=== PATIENT | female | born 1975 | race Caucasian/White ===

== ENCOUNTER → 2019-04-18 | Outpatient (CLI) | payer OTHER ==
--- NOTE | 2019-04-19 14:47 | WOMENS IMAGING REPORT ---
EXAM DESCRIPTION: BILAT SCREENING MAMMO W/CAD COMPLETED DATE/TIME: 04/18/2019 4:05 pm REASON FOR STUDY: Z12.31 ENCOUNTER FOR SCREENING MAMMOGRAM FOR MALIGNANT NEOPLASM OF BREAST Z12.31 ENCNTR SCREEN MAMMOGRAM FOR MALIGNANT NEOPLASM OF [place] COMPARISON: None. EXAM PARAMETERS: Standard craniocaudal and mediolateral oblique views of each breast recorded using digital acquisition. Additional "push-back" craniocaudal and mediolateral oblique images acquired. Read with the assistance of CAD. .[facility] - Direct Support Professional Caregiver Version 9.2 LIMITATIONS: None. FINDINGS: IMPLANTS: Bilateral subpectoral implants. Findings present which are benign by mammographic criteria. No suspicious masses, calcifications or architectural distortion. Benign mammographic findings may include one or more of the following: Smooth masses, popcorn/rim/co arse calcifications, asymmetries, post-procedure changes, and lesions with long-standing stability. IMPRESSION: BENIGN MAMMOGRAPHIC FINDINGS. BIRADS 2 BREAST DENSITY: c. The breasts are heterogeneously dense, which may obscure small masses. BIRAD: ASSESSMENT: 2 BENIGN FINDING(S) RECOMMENDATION: ROUTINE SCREENING COMMENT: The patient has been notified of the results by letter per MQSA requirements. Additional no tification policies are in place for contacting patient with suspicious or incomplete findings. Quality ID #[id number]: The [employer] recommends an annual screening mammogram for women aged 40 years or over. This facility utilizes a reminder system to ensure that all patients receive reminder letters, and/or direct phone calls for appointments. This includes reminders for routine scr eening mammograms, diagnostic mammograms, or other Breast Imaging Interventions when appropriate. Th is patient will be placed in the appropriate reminder system. TECHNICAL DOCUMENTATION: FINDING NUMBER: (1) ASSESSMENT: (1) JOB ID: [id number] 2010 [employer]- All Rights Reserved Reading location - IP/workstation name: [email or web address]
== END ==
LOC: WI 15:37
PROVIDERS: ATTEND Family Medicine
DX: Z12.31 Encounter for screening mammogram for malignant neoplasm of breast (principal); Z98.82 Breast implant status
CPT/HCPCS: 77067

== ENCOUNTER 2019-08-19 10:47 | Emergency (ER) | payer OTHER ==
[2019-08-19] MEDS ORDERED: NORMAL SALINE 1000 ML 1,000 ML IV ONE (13:03)
[2019-08-19] MEDS ORDERED: ACETAMINOPHEN 325 MG TABLET PO ONE (13:04)
[2019-08-19] MEDS ORDERED: LOPERAMIDE HCL 2 MG CAPSULE PO ONE (13:04)
[2019-08-19 13:14] LABS: ABSOLUTE LYMPHOCYTES (AUTO) 0.5 10^3/uL (0.5-4.7); ABSOLUTE MONOCYTES (AUTO) 0.5 10^3/uL (0.1-1.4); BASOPHILS % (AUTO) 0.3 % (0-2); EOSINOPHILS % (AUTO) 0.1 % (0-6); HEMATOCRIT 33.7 % (36.0-47.0); HEMOGLOBIN 12.2 g/dL (12.0-15.5); MEAN CORPUSCULAR HEMOGLOBIN 31.4 pg (27.0-33.4); MEAN CORPUSCULAR HGB CONC 36.2 g/dL (32.0-36.0); MEAN CORPUSCULAR VOLUME 87 fl (80-97); MONOCYTES % (AUTO) 9.6 % (3-13); PLATELET COUNT 130 10^3/uL (150-450); RED BLOOD COUNT 3.89 10^6/uL (3.72-5.28); RED CELL DISTRIBUTION WIDTH 12.8 % (11.5-14.0); TOTAL CELLS COUNTED % (AUTO) 100 %; WHITE BLOOD COUNT 5.1 10^3/uL (4.0-10.5)
[2019-08-19 13:17] LABS: INTERNATIONAL RATION (INR) 1.13; PROTHROMBIN TIME 14.6 SEC (11.4-15.4)
[2019-08-19 13:18] LABS: PARTIAL THROMBOPLASTIN TIME 30.3 SEC (23.5-35.8)
[2019-08-19 13:29] LABS: ALBUMIN 3.8 g/dL (3.5-5.0); ALKALINE PHOSPHATASE 45 U/L (38-126); ANION GAP 6 (5-19); ASPARTATE AMINO TRANSFERASE 28 U/L (14-36); BILIRUBIN,TOTAL 0.7 mg/dL (0.2-1.3); BLOOD UREA NITROGEN 5 mg/dL (7-20); CALCIUM 8.6 mg/dL (8.4-10.2); CARBON DIOXIDE 25 mmol/L (22-30); CHLORIDE 103 mmol/L (98-107); GLUCOSE 103 mg/dL (75-110); POTASSIUM 3.5 mmol/L (3.6-5.0); TOTAL PROTEIN 6.3 g/dL (6.3-8.2)
--- NOTE | 2019-08-19 13:37 | ER Document Report ---
ED Flu Like - General Chief Complaint: Flu Symptoms Stated Complaint: FEVER,CHILLS,DIARRHEA,BODY ACHES Time Seen by Provider: 08/19/19 12:20 [facility] - Follow up as needed Mode of Arrival: Ambulatory Information source: Patient Notes: Patient presents complaining of diarrhea for the past 3 days. Patient states she has had 4 episodes today and did notice some blood in her stool yesterday. Patient reports fever of 1027 today with body aches for the past 2 days. Patient states she has had headache to the frontal area and abdominal cramping with her diarrhea for the past 2 days as well. Patient went to the [facility] for screening for the coronavirus and was found to have a low blood pressure at that time. They advised her to come here for further evaluation. Patient did have a negative strep and negative influenza test there and has a COVID test that is currently pending. Patient denies any cough. Patient denies any nausea or vomiting. TRAVEL OUTSIDE OF THE [place] IN LAST 30 DAYS: No - Related Data Allergies/Adverse Reactions: bee venom protein (honey bee) Allergy (Verified 08/19/19 12:46) dill oil Allergy (Verified 08/19/19 12:46) shellfish derived Allergy (Verified 08/19/19 12:46) Past Medical History - General Information source: Patient - Social History Smoking Status: Never Smoker Frequency of alcohol use: None Drug Abuse: None Occupation: none Lives with: Family Family History: Reviewed & Not Pertinent Patient has homicidal ideation: No - Medical History Medical History: Negative Past Surgical History: Reports: Hx Breast Surgery - augmentation Review of Systems - Review of Systems Constitutional: Chills, Fever, Malaise EENT: No symptoms reported Cardiovascular: No symptoms reported. denies: Chest pain Respiratory: No symptoms reported. denies: Cough Gastrointestinal: Abdominal pain, Diarrhea. denies: Nausea, Vomiting Genitourinary: No symptoms reported. denies: Dysuria Female Genitourinary: No symptoms reported Musculoskeletal: Muscle pain Skin: No symptoms reported Hematologic/Lymphatic: No symptoms reported Neurological/Psychological: Headaches. denies: Weakness Physical Exam - Vital signs Vitals: Temp 98.9 F 08/19/19 11:48 - General General appearance: Appears well, Alert In distress: None - HEENT Head: Normocephalic, Atraumatic Eyes: Normal Conjunctiva: Normal Nasal: Normal Mouth/Lips: Normal Mucous membranes: Normal Pharynx: Normal. No: Erythema, Peritonsillar abscess, Tonsillar hypertrophy Neck: Normal, Supple. No: Lymphadenopathy, Meningismus - Respiratory Respiratory status: No respiratory distress Chest status: Nontender Breath sounds: Normal. No: Rales, Rhonchi, Stridor, Wheezing Chest palpation: Normal - Cardiovascular Rhythm: Regular Heart sounds: S1 appreciated, S2 appreciated Murmur: No - Abdominal Inspection: Normal Distension: No distension Bowel sounds: Normal Tenderness: Tender - Generalized abdominal tenderness. No: McBurney's point, Mu rphy's sign, Guarding Organomegaly: No organomegaly - Back Back: Normal, Nontender. No: CVA tenderness - Extremities General upper extremity: Normal inspection, Normal strength General lower extremity: Normal inspection, Normal strength - Neurological Neuro grossly intact: Yes Cognition: Normal Yessenia Coma Scale Eye Opening: Spontaneous [place] Coma Scale Verbal: Oriented [place] Coma Scale Motor: Obeys Commands Talmage Coma Scale Total: 15 - Psychological Associated symptoms: Normal affect, Normal mood - Skin Skin Temperature: Warm Skin Moisture: Dry Skin Color: Normal Course - Re-evaluation Re-evalutation: 08/19/19 15:16 Patient states that she has had no additional diarrhea bowel movement while her e. Patient complains of continued mild cramping to her abdomen. No nausea or vomiting at this time. 08/19/19 17:06 Abdomen soft, patient does report cramping with diarrhea bowel movement. Patient has had 2 stools while here. Patient without any acute findings on her diagnostic evaluation here today. Patient did have a negative rapid strep and influenza test at the [facility] and did have a COVID test that is still pending at this time. Discussed symptomatic treatment at this time. Discussed worsening symptoms of patient should return immediately for. Patient verbalized understanding and is agreeable plan of care at this time. Low clinical suspicion for any acute life-threatening etiology based on exam and history including acute cholecystitis, SBO, appendicitis, nephrolithiasis, or pylo nephritis. CMP without evidence of acute hepatitis or significant dehydration. Will plan for discharge at this time with return precautions and followup recommendations. 08/19/19 17:10 The patient was evaluated during the global Covid 19 pandemic, and that diagnosis was suspected/considered upon their initial presentation. Their evaluation, treatment and testing was consistent with current guidelines for patients who present with complaints or symptoms that may be related to Covid 19. - Vital Signs Vital signs: Temp Pulse Resp BP Pulse Ox 97.6 F 62 16 98/64 L 100 08/19/19 19:10 08/19/19 19:10 08/19/19 19:10 08/19/19 19:10 08/19/19 19:10 - Laboratory Result Diagrams: 08/19/19 12:30 08/19/19 12:30 Laboratory results interpreted by me: 08/19/19 08/19/19 08/19/19 11:45 12:30 12:30 Hct 33.7 L MCHC 36.2 H Plt Count 130 L Lymph % (Auto) 10.0 L Seg Neutrophils % 80.0 H Sodium 133.8 L Potassium 3.5 L BUN 5 L Urine Ketones TRACE H Urine Blood SMALL H 08/19/19 17:08 Labs- All tests 24 hr 08/19/19 08/19/19 08/19/19 11:45 12:30 12:30 WBC 5.1 RBC 3.89 Hgb 12.2 Hct 33.7 L MCV 87 MCH 31.4 MCHC 36.2 H RDW 12.8 Plt Count 130 L Lymph % (Auto) 10.0 L [place] % (Auto) 9.6 Eos % (Auto) 0.1 Baso % (Auto) 0.3 Absolute Neuts (auto) 4.0 Absolute Lymphs (auto) 0.5 Absolute Monos (auto) 0.5 Absolute Eos (auto) 0.0 Absolute Basos (auto) 0.0 Seg Neutrophils % 80.0 H PT INR APTT Sodium 133.8 L Potassium 3.5 L Chloride 103 Carbon Dioxide 25 Anion Gap 6 BUN 5 L Creatinine 0.54 Est GFR ( Amer) > 60 Est GFR (MDRD) Non-Af > 60 Glucose 103 Calcium 8.6 Total Bilirubin 0.7 Direct Bilirubin 0.0 Neonat Total Bilirubin Not Reportable Neonat Direct Bilirubin Not Reportable Neonat Indirect Bili Not Reportable AST 28 ALT 14 Alkaline Phosphatase 45 Total Protein 6.3 Albumin 3.8 Lipase 61.3 Serum HCG, Qual Urine Color STRAW Urine Appearance CLEAR Urine pH 7.0 Ur Specific [place] 1.003 Urine Protein NEGATIVE Urine Glucose (UA) NEGATIVE Urine Ketones TRACE H Urine Blood SMALL H Urine Nitrite NEGATIVE Urine Bilirubin NEGATIVE Urine Urobilinogen NEGATIVE Ur Leukocyte Esterase NEGATIVE Urine WBC (Auto) 0 Urine RBC (Auto) 0 Urine Mucus (Auto) RARE Urine Ascorbic Acid NEGATIVE 08/19/19 08/19/19 12:30 12:30 WBC RBC Hgb Hct MCV MCH MCHC RDW Plt Count Lymph % (Auto) [place] % (Auto) Eos % (Auto) Baso % (Auto) Absolute Neuts (auto) Absolute Lymphs (auto) Absolute Monos (auto) Absolute Eos (auto) Absolute Basos (auto) Seg Neutrophils % PT 14.6 INR 1.13 APTT 30.3 Sodium Potassium Chloride Carbon Dioxide Anion Gap BUN Creatinine Est GFR ( Amer) Est GFR (MDRD) Non-Af Glucose Calcium Total Bilirubin Direct Bilirubin Neonat Total Bilirubin Neonat Direct Bilirubin Neonat Indirect Bili AST ALT Alkaline Phosphatase Total Protein Albumin Lipase Serum HCG, Qual NEGATIVE Urine Color Urine Appearance Urine pH Ur Specific [place] Urine Protein Urine Glucose (UA) Urine Ketones Urine Blood Urine Nitrite Urine Bilirubin Urine Urobilinogen Ur Leukocyte Esterase Urine WBC (Auto) Urine RBC (Auto) Urine Mucus (Auto) Urine Ascorbic Acid Discharge - Discharge Clinical Impression: Abdominal cramping, Dehydration Diarrhea Qualifiers: Diarrhea type: unspecified type Qualified Code(s): R19.7 - Diarrhea, unspecified Condition: Stable Disposition: HOME, SELF-CARE Instructions: Antispasmodics ([facility]) Additional Instructions: Return immediately for any new or worsening symptoms Followup with your primary care provider, call tomorrow to make a followup appointment DIARRHEA, NON-SPECIFIC: Diarrhea means frequent, watery stools. There are many causes. Any problem that keeps the intestinal tract from absorbing water from the stool can lead to diarrhea. A sudden new diarrhea problem is usually caused by a virus, food sensitivity, toxic bacteria, or drugs. In this case, we expect the problem to go away soon. Testing is done only if you seem seriously ill from the diarrhea. If you have chronic diarrhea, or diarrhea that keeps coming back, we need to find out why. Chronic diarrhea can be due to inflammation of the bowels such as Crohn's disease or ulcerative colitis, food sensitivity such as intolerance to lactose or wheat protein, irritable bowel syndrome, and other problems. If your diarrhea is a significant problem but it's not clear why you have it, we'll refer you to a specialist for further testing. During an episode of diarrhea, drink small amounts (two to six ounces) of clear liquids (soft drinks, sport drinks, herb teas, broth, etc). Take fluids frequently to prevent dehydration. It's usually not a problem to take mild anti- diarrhea medication such as Kaopectate or Pepto-Bismol. As the diarrhea eases, advance to small amounts of bland food (mashed potato, toast) for 24 hours. Call the physician if blood appears in your vomit or stool, if vomiting lasts longer than 24 hours, if the abdominal pain worsens or becomes localized to one area, if you develop high fever, or if you become lightheaded and weak. VIRAL SYNDROME: The physician has diagnosed a viral infection. Viruses not only cause "col ds," but can cause many different symptoms including generalized aching, fever, headache, cough, diarrhea, nausea, vomiting, and fatigue. The treatment, for the most part, is simply relief of symptoms. This means that antibiotics are usually not given. Rest, fluids, pain medications and, occasionally, medication for the specific symptoms that are most bothersome will be prescribed. Use good handwashing to avoid passing the virus to others. Shared toys should be cleaned with disinfectant. Clean the toilets, sinks, and counter surfaces in bathrooms. Launder clothing in hot water. Contact the physician if you develop any new or unusual symptoms such as severe headache, stiff neck, high fever, chest pain, productive cough, or shortness of breath. You should be rechecked if you don't see marked improvement within seven to 10 days. INTRAVENOUS (I V) FLUIDS: As part of your care today, you received intravenous (IV) fluids. IV fluids are administered to patients who are dehydrated or to those who have certain chemical (electrolyte) abnormalities that need correcting. FOLLOW-UP CARE: If you have been referred to a physician for follow-up care, call the physicians office for an appointment as you were instructed or within the next two days. If you experience worsening or a significant change in your symptoms, notify the physician immediately or return to the Emergency Department at any time for re-evaluation. Prescriptions: Dicyclomine HCl [Bentyl 20 mg Tablet] 20 mg PO QID PRN #12 tablet PRN Reason: Referrals: [facility] [Provider Group] - Follow up as needed
[2019-08-19 13:58] LABS: APPEARANCE,URINE CLEAR; BILIRUBIN,URINE NEGATIVE (NEGATIVE); COLOR,URINE STRAW; GLUCOSE, URINE NEGATIVE (NEGATIVE); KETONES,URINE TRACE mg/dL (NEGATIVE); LEUKOCYTE ESTERASE,URINE NEGATIVE (NEGATIVE); NITRITE,URINE NEGATIVE (NEGATIVE); PROTEIN,URINE NEGATIVE (NEGATIVE); URINE SPECIFIC GRAVITY 1.003; UROBILINOGEN,URINE NEGATIVE mg/dL (<2.0)
[2019-08-19] MEDS ORDERED: DICYCLOMINE HCL 20 MG TABLET PO ONE (15:15)
[2019-08-19] MEDS ORDERED: RINGERS SOLUTION,LACTATED 1,000 ML IV ONE (15:15)
[2019-08-19 19:10] VITALS: BP 98/64
--- NOTE | 2019-08-19 19:16 | EKG REPORT ---
SEVERITY:- NORMAL ECG - SINUS RHYTHM : Confirmed by: Kimberly Wong 19-Aug-2019 19:14:34
[2019-08-19 20:13] LABS: C DIFFICILE GDH NEGATIVE (NEGATIVE)
== END 2019-08-19 18:35 | disposition home or self-care (01) ==
LOC: ER 10:47
DX: E86.0 Dehydration (principal); R10.84 Generalized abdominal pain; R19.7 Diarrhea, unspecified; M79.10 Myalgia, unspecified site; R50.9 Fever, unspecified
CPT/HCPCS: 93005; 99284; 96360; 96361; 36415; 87040; 87045; 87205; 83690; 84703; 85025; 85610; 85730; 87077; 80053; 81001; 87324; 87449; 93010; J3490; J7030; J7120

== ENCOUNTER → 2019-08-19 | Outpatient (CLI) | payer OTHER ==
[2019-08-19 12:51] LABS: A TYPE INFLUENZA AG NEGATIVE (NEGATIVE); B INFLUENZA AG NEGATIVE (NEGATIVE)
[2019-08-19 13:34] VITALS: BP 83/50
--- NOTE | 2019-08-19 13:34 | ER RDC ASSESSMENT REPORT ---
Intake - In the Last 14 days Have you traveled outside [place]?: No Have you been in close contact with someone CONFIRMED: No Worked in Healthcare?: No - Symptoms Subjective Fever([place] feverish): Yes Chills: Yes Muscule Aches: Yes Runny Nose: No Sore Throat: No Cough (New or worsening chronic cough): No Shortness of breath: No Nausea or Vomiting: No Headache: No Abdominal Pain: Yes Diarrhea(3 or more loose stools in last 24 hours): Yes - Do you have any of the following Chronic lung disease: Asthma or emphysema or COPD: No Cystic Fibrosis: No Diabetes: No High Blood Pressure: No Cardiovascular Disease: No Chronic Kidney Disease: No Chronic Liver Disease: No Chronic blood disorder like Sickle Cell Disease: No Weak immune system due to disease or medication: No Neurologic condition that limits movement: No Developmental delay - Moderate to Severe: No Recent (within past 2 weeks) or current : No Morbid Obesity (>100 pounds over ideal weight): No - Objective Vital Signs: 5'4", 120 lb Temperature: 98.8 F Pulse Rate: 97 Respiratory Rate: 20 Blood Pressure: 83/50 - recheck 86/54 O2 Sat by Pulse Oximetry: 97 Objective: Given above, testing performed: flu, strep, covid Disposition: Home; Selfcare General - General Chief Complaint: Diarrhea Time Seen by Provider: 08/19/19 10:30 Mode of Arrival: Ambulatory Information source: Patient - HPI Notes: 44-year-old female presents to [facility] clinic for COVID-19 testing. Patient has no significant medical history. Patient states onset of symptoms 08/15/2019. She is reporting moderate diarrhea, abdominal pain, headache, chills, muscle aches, and has felt feverish. She is currently denying any sore throat, cough, shortness of breath, nausea. Patient states she has been taking Tylenol with little relief of symptoms. - Related Data Allergies/Adverse Reactions: bee venom protein (honey bee) Allergy (Verified 08/19/19 12:46) dill oil Allergy (Verified 08/19/19 12:46) shellfish derived Allergy (Verified 08/19/19 12:46) Past Medical History - General Information source: Patient - Social History Smoking Status: Former Smoker - Past Medical History Cardiac Medical History: Reports: None Pulmonary Medical History: Reports: None EENT Medical History: Reports: None Neurological Medical History: Reports: None Endocrine Medical History: Reports: None Renal/ Medical History: Reports: None Malignancy Medical History: Reports: None GI Medical History: Reports: None Musculoskeletal Medical History: Reports None Skin Medical History: Reports None Psychiatric Medical History: Reports: None Traumatic Medical History: Reports: None Infectious Medical History: Reports: None Surgical Hx: Negative Past Surgical History: Reports: None Physical Exam - General General appearance: Lethargic In distress: None Notes: PHYSICAL EXAMINATION: GENERAL: ill-appearing, no acute distress but lethargic. HEAD: Atraumatic, normocephalic. EYES: sclera anicteric, conjunctiva are normal. ENT: nares patent. Moist, pale mucous membranes. NECK: Normal range of motion, supple without lymphadenopathy LUNGS: CTAB and equal. No wheezes rales or rhonchi. HEART: Regular rate and rhythm without murmurs ABDOMEN: Soft, nontender, normal bowel sounds, no guarding. EXTREMITIES: Normal range of motion, no pitting edema. No cyanosis. NEUROLOGICAL: Cranial nerves grossly intact. Normal speech. PSYCH: Normal mood, normal affect. SKIN: Pale, warm, Dry, normal turgor, no rashes or lesions noted Diagnostic Results Laboratory Results: 08/19/19 10:22 Throat Throat Culture - Pending Influenza A (Rapid) NEGATIVE (NEGATIVE) 08/19/19 11:50 Influenza B (Rapid) NEGATIVE (NEGATIVE) 08/19/19 11:50 Group A Strep Rapid NEGATIVE (NEGATIVE) 08/19/19 10:22 Patient Education/Counseling Counseling/Education: Patient presents with symptoms worrisome for possible Covid 19. Patient does not have emergency worrying symptoms such as difficulty breathing, shortness of breath, chest pain, pressure, confusion or cyanosis. However, she is pale, lethargic, and has low BP. No history of hypotension. Advised patient to report to ER for further work-up and possible IV fluids due to the symptoms and blood pressures sitting in the low 80s. Patient and spouse in agreement with recommendation. Referred to ER. Guidance for worsening S/SX: As a person under investigation for Covid 19, the [facility] of Health and Human Services, division of public health advises you to adhere to the following guidance until your test results are reported to you. If your test result is positive, you will receive additional information from your pr ovider and your local health department at that time. Remain at home until you are cleared by the health provider or public health authorities. Keep a log of visitors to your home, notify any visitors to your home of your isolation status. If you plan to move to a new address or leave the county, notify the local health department in your County. Call your doctor or seek care if you have an urgent medical need. Before seeking medical care, call ahead to get instructions from the provider before arriving at the medical office clinic or hospital. Notify them that you are being tested for the virus that causes Covid 19 so that arrangements can be made, as necessary, to prevent transmission to others in the healthcare setting. Next, notify the local health department in your county. If a medical emergency arises and you need to call 911, inform the first responders that you are being tested for the virus that causes Covid 19. Next, notify the local health department in your county. RDC Discharge - Discharge Clinical Impression: Encounter for screening laboratory testing for COVID-19 virus Diarrhea Qualifiers: Diarrhea type: unspecified type Qualified Code(s): R19.7 - Diarrhea, unspecified Condition: Fair Disposition: To ED
== END ==
LOC: RDC 09:49
PROVIDERS: ATTEND Registered Nurse
DX: Z20.828 Contact with and (suspected) exposure to other viral communicable diseases (principal); R19.7 Diarrhea, unspecified; R50.9 Fever, unspecified; R10.9 Unspecified abdominal pain; R51 Headache; R53.83 Other fatigue; M79.10 Myalgia, unspecified site; Z87.891 Personal history of nicotine dependence; Z91.030 Bee allergy status; Z91.013 Allergy to seafood; Z91.048 Other nonmedicinal substance allergy status
CPT/HCPCS: 87070; 87880; 87635; 87804; C9803